=== PATIENT | female | born 2000 | race Caucasian/White ===

== ENCOUNTER 2024-02-13 18:27 | Inpatient (IN) | payer OTHER ==
[~2024-02-13] VITALS: Ht 160 cm; Wt 120.0 kg
[2024-02-13] MEDS ORDERED: Lactated Ringer's 1,000 ML IV PRN (21:55)
[2024-02-13] MEDS ORDERED: Ondansetron HCl 2 MG / ML 2ML Vial IV PRN (21:55)
[2024-02-13] MEDS ORDERED: OXYTOCIN/RINGER'S LACTATE 500 ML IV PRN (21:55)
[2024-02-13] MEDS ORDERED: Misoprostol 200 MCG Tab PR PRN (21:55)
[2024-02-13] MEDS ORDERED: Oxytocin 10 Unit / ML Vial IM PRN (21:55)
[2024-02-13] MEDS ORDERED: Misoprostol 25 MCG Tab VAG PRN (21:55)
[2024-02-13] MEDS ORDERED: Methylergonovine Maleate 0.2MG / ML 1ML Amp IM PRN (21:55)
[2024-02-13] MEDS ORDERED: Acetaminophen 500 MG Tab PO PRN (21:55)
[2024-02-13] MEDS ORDERED: Tranexamic Acid 100 ML IV SCH (21:55)
[2024-02-13] MEDS ORDERED: Carboprost Tromethamine 250 MCG/ML 1ML Amp IM PRN (21:55)
[2024-02-13] MEDS ORDERED: Misoprostol 200 MCG Tab BC PRN (21:55)
[2024-02-13] MEDS ORDERED: Zolpidem Tartrate 10 MG Tab PO PRN (22:00)
[2024-02-13] MEDS ORDERED: Calcium Carbonate 500 MG Tab Chew PO PRN (22:00)
[2024-02-13 22:18] LABS: BASOPHILS ABSOLUTE AUTO 0.01 K/mm3 (0.00-0.23); BASOPHILS PERCENT AUTO 0 % (0-2); EOSINOPHILS ABSOLUTE AUTO 0.06 K/mm3 (0.00-0.68); EOSINOPHILS PERCENT AUTO 0 % (0-6); Hematocrit 36.1 % (33.0-51.0); Hemoglobin 11.5 g/dL (11.5-16.0); IMMATURE GRAN ABSOLUTE AUTO 0.07 K/mm3 (0.00-0.10); IMMATURE GRAN PERCENT AUTO 1 % (0-1); LYMPHOCYTES ABSOLUTE AUTO 2.71 K/mm3 (0.84-5.20); LYMPHOCYTES PERCENT AUTO 19 % (21-46); MONOCYTES ABSOLUTE AUTO 0.72 K/mm3 (0.16-1.47); MONOCYTES PERCENT AUTO 5 % (4-13); Mean Corpuscular HGB 25.4 pg (26.0-34.0); Mean Corpuscular HGB Conc 31.9 g/dL (31.5-36.5); Mean Corpuscular Volume 80 fL (80-100); Mean Platelet Volume 10.3 fL (9.1-12.4); NEUTROPHILS ABSOLUTE AUTO 10.51 K/mm3 (1.96-9.15); NEUTROPHILS PERCENT AUTO 75 % (41-73); Platelet Count 416 K/mm3 (150-400); RDW Coefficient Variation 15.6 % (11.7-14.2); RDW Standard Deviation 44.4 fL (35.1-46.3); Red Blood Cell Count 4.52 M/mm3 (3.80-5.20); White Blood Cell Count 14.08 K/mm3 (4.00-11.30)
[2024-02-14] VITALS (27 sets, daily range): BP systolic 103–143; BP diastolic 58–94
[2024-02-14] MEDS ORDERED: CeFAZolin Sodium 3,000 MG in NS 100 ML IV SCH (03:35)
[2024-02-14] MEDS ORDERED: Azithromycin 500 MG in NS 250 ML IV SCH (03:35)
[2024-02-14] MEDS ORDERED: Terbutaline Sulfate 1MG / ML 1 ML Amp ONE (03:38)
[2024-02-14] MEDS ORDERED: Citric Acid/Sodium Citrate 30 ML BTL PO ONE (03:50)
[2024-02-14] MEDS ORDERED: Metoclopramide HCl 5MG / ML 2ML Vial IV ONE (03:50)
[2024-02-14] MEDS ORDERED: Phenylephrine HCl 100 MCG/ML-NS 10MLSYR (1MG/10ML) ONE (05:22)
[2024-02-14] MEDS ORDERED: Oxytocin 10 Unit / ML Vial ONE (05:22)
[2024-02-14] MEDS ORDERED: ePHEDrine Sulfate 50 MG/ML 1ML Injection ONE (05:38)
[2024-02-14] MEDS ORDERED: Lactated Ringer's 1,000 ML IV ONE (05:55)
[2024-02-14 06:41] LABS: PCO2 Cord - Venous 47.5 mmHg (40-50); PO2 Cord - Venous 20.2 mmHg (28-32); pH Umbilical Cord - Venous 7.26 (7.26-7.35)
[2024-02-14] MEDS ORDERED: Ketorolac Tromethamine 30mg Vial ONE (06:47)
[2024-02-14] MEDS ORDERED: Misoprostol 200 MCG Tab PR PRN (07:15)
[2024-02-14] MEDS ORDERED: DiphenhydrAMINE HCL 25 MG Cap PO PRN (07:15)
[2024-02-14] MEDS ORDERED: Acetaminophen 500 MG Tab PO PRN (07:15)
[2024-02-14] MEDS ORDERED: Carboprost Tromethamine 250 MCG/ML 1ML Amp IM PRN (07:15)
[2024-02-14] MEDS ORDERED: Promethazine HCl 25 MG Tab PO PRN (07:20)
[2024-02-14] MEDS ORDERED: OxyCODONE HCL 5 MG TAB PO PRN ×2 (07:20→07:25)
[2024-02-14] MEDS ORDERED: Simethicone 80 MG Chew PO PRN (07:20)
[2024-02-14] MEDS ORDERED: Magnesium Hydroxide Conc 10 ML UDC PO PRN (07:20)
[2024-02-14] MEDS ORDERED: Methylergonovine Maleate 0.2 MG Tab PO PRN (07:20)
[2024-02-14] MEDS ORDERED: Metoclopramide HCl 10 MG Tab PO PRN (07:20)
[2024-02-14] MEDS ORDERED: Lactated Ringer's 1,000 ML IV SCH (07:25)
[2024-02-14] MEDS ORDERED: OXYTOCIN/RINGER'S LACTATE 500 ML IV SCH (07:25)
[2024-02-14] MEDS ORDERED: Ondansetron HCl 2 MG / ML 2ML Vial IV PRN (07:25)
[2024-02-14] MEDS ORDERED: Lanolin Cream TOP PRN (07:30)
[2024-02-14] MEDS ORDERED: Ketorolac Tromethamine 30mg Vial IV SCH (08:00)
[2024-02-14] MEDS ORDERED: Ibuprofen 400 MG Tab PO SCH (08:00)
[2024-02-14] MEDS ORDERED: Prenatal Vit/FE Fumarate/FA 1 Tab PO SCH (09:00)
[2024-02-14] MEDS ORDERED: Docusate Sodium 100 MG Cap PO SCH (09:00)
--- NOTE | 2024-02-14 12:06 | NUR ---
PT SITTING UP EATING LUNCH. LYNAD WELL. C/O PAIN. RX GIVEN. WILL DO FRANNIE CARE WHEN PT IS DONE EATING. FAMILY AND NB IN ROOM. VISITING WITH FAMILY.
[2024-02-14] MEDS ORDERED: Ketorolac Tromethamine 30mg Vial IV PRN (12:45)
[2024-02-15 01:10] VITALS: BP 124/70
[2024-02-15 04:11] VITALS: BP 129/76
[2024-02-15 07:32] LABS: BASOPHILS ABSOLUTE AUTO 0.02 K/mm3 (0.00-0.23); BASOPHILS PERCENT AUTO 0 % (0-2); EOSINOPHILS ABSOLUTE AUTO 0.04 K/mm3 (0.00-0.68); EOSINOPHILS PERCENT AUTO 0 % (0-6); Hematocrit 26.8 % (33.0-51.0); Hemoglobin 8.6 g/dL (11.5-16.0); IMMATURE GRAN ABSOLUTE AUTO 0.06 K/mm3 (0.00-0.10); IMMATURE GRAN PERCENT AUTO 1 % (0-1); LYMPHOCYTES ABSOLUTE AUTO 2.11 K/mm3 (0.84-5.20); LYMPHOCYTES PERCENT AUTO 16 % (21-46); MONOCYTES ABSOLUTE AUTO 0.75 K/mm3 (0.16-1.47); MONOCYTES PERCENT AUTO 6 % (4-13); Mean Corpuscular HGB Conc 32.1 g/dL (31.5-36.5); Mean Corpuscular Volume 81 fL (80-100); Mean Platelet Volume 10.2 fL (9.1-12.4); NEUTROPHILS ABSOLUTE AUTO 9.99 K/mm3 (1.96-9.15); NEUTROPHILS PERCENT AUTO 77 % (41-73); Platelet Count 306 K/mm3 (150-400); RDW Coefficient Variation 15.9 % (11.7-14.2); RDW Standard Deviation 46.6 fL (35.1-46.3); Red Blood Cell Count 3.31 M/mm3 (3.80-5.20); White Blood Cell Count 12.97 K/mm3 (4.00-11.30)
[2024-02-15] MEDS ORDERED: Ibuprofen 400 MG Tab PO SCH ×2 (08:00→16:00)
[2024-02-15 08:52] VITALS: BP 120/63
[2024-02-15] MEDS ORDERED: Sod Ferric Gluc Complx/Sucrose 125 MG in NS 100 ML IV SCH (10:41)
[2024-02-15 12:34] VITALS: BP 149/77
[2024-02-15 15:40] VITALS: BP 141/91
[2024-02-15 19:39] VITALS: BP 125/76
[2024-02-16 00:52] VITALS: BP 127/62
[2024-02-16 04:05] VITALS: BP 125/77
[2024-02-16 08:23] VITALS: BP 145/80
--- NOTE | 2024-02-16 09:52 | NUR ---
iv removed, catheter intact.
--- NOTE | 2024-02-16 10:19 | NUR ---
PT CALLED THIS RN IN TO ROOM TO ASSESS ABDOMEN. WHEN SHE GOT UP TO THE BATHROOM, SHE NOTICED A RED RAISED RASH THE SIZE OF MY PALM THAT WAS ITCHY. IT WAS NOT THERE ON MY ASSESSMENT THIS AM. DR SANON HAD ALREADY LEFT HOSPITAL, PROVIDER PAGED, NEW ORDERS FOR HYDROCORTISONE CREAM AND CLARITIN FOR ITCHINESS. WILL SEE IF CREAM HELPS AND WATCH A COUPLE OF HOURS TO MAKE SURE IT DOESNT WORSEN. PT AGREEABLE TO PLAN. PT STILL ABLE TO DC IF TX WORKS PER DR SANON. IF IT GETS LARGER, THEN ORDERS TO CALL PROVIDER TO COME BACK TO ASSESS.
[2024-02-16] MEDS ORDERED: Loratadine 10 MG Tab PO ONE (10:20)
[2024-02-16] MEDS ORDERED: Hydrocortisone 1% Cream 30 gm TOP ONE (10:20)
[2024-02-16 10:32] VITALS: BP 129/79
--- NOTE | 2024-02-16 13:00 | NUR ---
HYDROCORTISONE CREAM AND CLARITIN HELPED PATIENTS RASH AND IT DID NOT APPEAR RED OR RAISED IT DID PREVIOUSLY. PT STATES THE CLARITIN WAS HELPFUL AND SHE FELT COMFORTABLE GOING HOME WITH THE HYDROCORTISONE CREAM. AWARE TO CALL PROVIDER IF RASH BECAME WORSE OR SPREAD. SCRIPTS PICKED UP BY S/O. APPTS MADE AND PT WILL FOLLOW UP SUNDAY SCHEDULED.
--- NOTE | 2024-02-16 13:54 | NUR ---
ORLANDO Santiago RN REASSESS PT RASH. STATES IMPROVED FROM [facility]. OK TO SEND HOME. PT REPORTS FEELING COMFORTABLE GOING HOME. ENCOURAGED PT TO USE HYDROCORTISONE CREAM PRESCRIBED BY PROVIDER. DISCUSSED DISCHARGE INSTRUCTIONS. PT AND FOB VERBALIZED UNDERSTANDING.
[2024-02-16 13:58] VITALS: BP 126/78
== END 2024-02-16 14:04 | disposition home or self-care (01) | DRG 787 ==
LOC: OBS 18:27 → BC 18:28 → OBS 18:36 → BC 18:37
PROVIDERS: Obstetrics & Gynecology; ADMIT Advanced Practice Midwife
PROC: 10D00Z1 Extraction of Products of Conception, Low, Open Approach (ICD-10-PCS; principal; 2024-02-14 18:15)
DX: O24.429 Gestational diabetes mellitus in childbirth, unspecified control (principal); D62 Acute posthemorrhagic anemia; O76 Abnormality in fetal heart rate and rhythm complicating labor and delivery; Z37.0 Single live birth; O99.214 Obesity complicating childbirth; O90.81 Anemia of the puerperium; E66.01 Morbid (severe) obesity due to excess calories; Z3A.39 39 weeks gestation of pregnancy; Z90.89 Acquired absence of other organs; M77.8 Other enthesopathies, not elsewhere classified; O99.892 Other specified diseases and conditions complicating childbirth; O99.344 Other mental disorders complicating childbirth; O99.52 Diseases of the respiratory system complicating childbirth; F41.9 Anxiety disorder, unspecified; J45.909 Unspecified asthma, uncomplicated; Z87.891 Personal history of nicotine dependence
CPT/HCPCS: 36415; 82803; 82947; 85025; 86850; 86900; 86901; 86923; A9270; J0456; J0690; J1885; J2371; J2590; J2765; J2916; J7050

== ENCOUNTER → 2024-04-03 | Outpatient (CLI) | payer OTHER | END | disposition home or self-care (01) | LOC: LAB 10:59 → LAB SHORT 10:59 | PROVIDERS: Advanced Practice Midwife | DX: R87.615 Unsatisfactory cytologic smear of cervix (principal) | CPT/HCPCS: G0123 ==